=== PATIENT | male | born 1960 | race Caucasian/White ===

== ENCOUNTER 2016-05-04 22:02 | Emergency (ER) | payer MEDICAID ==
[~2016-05-04] VITALS: Ht 185.4 cm; Wt 127.3 kg
[2016-05-04 22:07] VITALS: BP 146/106; TEMP 97.8
[2016-05-04 22:55] VITALS: PULSE 98
== END 2016-05-04 22:55 | disposition home or self-care (01) ==
LOC: COL.ER 22:02
DX: M65.331 Trigger finger, right middle finger (principal)